=== PATIENT | male | born 1930 ===

== ENCOUNTER → 2018-04-11 | Outpatient (CLI) | payer OTHER | LOC: LAB SHORT 19:02 → LAB 19:02 | DX: Z48.02 Encounter for removal of sutures (principal); L08.9 Local infection of the skin and subcutaneous tissue, unspecified; D48.5 Neoplasm of uncertain behavior of skin; L57.0 Actinic keratosis; L40.0 Psoriasis vulgaris; L30.9 Dermatitis, unspecified | CPT/HCPCS: 87070; 87077; 87147; 87186; 87205 ==